=== PATIENT | female | born 1975 | race Caucasian/White ===

== ENCOUNTER 2016-09-17 10:30 | Emergency (ER) | payer SELFPAY ==
--- NOTE | 2016-09-17 11:35 | ED NURSING NOTES ---
Clinical Report - Nurses [facility] [address] [place] [address] 09/17/2016 10:32 [id number] Triage time 10:37 Sep 17 2016. Chief Complaint: Location of symptoms- left shoulder. 10:38 09/17/16. 10:39 09/17/16. Alert. ( Pt with history of RA, pt states she is having left shoulder pain because of this. Pt has been unable to get a PCP as she recently moved here and has not had time to do so.). SEPSIS SCREEN: Sepsis Screen. Negative (no infection suspected/documented). NATHALY COMA SCORE: Nathaly Coma Scale: 15- eyes open spontaneously (4); best verbal response- oriented x 4 (5); best motor response- obeys commands (6). --10:43 Darryl Potter R.N. 10:37 09/17/16. BP: 124/68. HR: 86. RR: 17. O2 saturation: 98% on room air. Temp: 97.8 F (oral). Pain level now: 10/29. --10:43 Darryl Potter R.N. Weight: 99.7 kg stated. Height/Length: 63 inches Per Patient. BMI: 38.9. --10:38 Darryl Potter R.N. Medications Plaquenil Oral. --10:40 Darryl Potter R.N. MetFORMIN HCl Oral. --10:40 Darryl Potter R.N. Allergies Keflex. --10:40 Darryl Potter R.N. PCN. --10:40 Darryl Potter R.N. History Arrived by private vehicle. Historian: patient. Unaccompanied. Primary physician (PCP is in [place], Pt recently moved here). 10:39 09/17/16. No injury occurred. 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 (and heat). PAST MEDICAL HX: Tetanus status: up-to-date. Immunizations: up-to-date. SOCIAL HX: Current every day light tobacco smoker (cigarette)- less than 1/2 a pack per day. No alcohol use or drug use. No infectious disease exposure. ABUSE ASSESSMENT: No report of abuse. FALL RISK ASSESSMENT: Fall risk assessment completed. No fall risk identified. NUTRITIONAL RISK ASSESSMENT: The nutritional risk assessment revealed no deficiencies. FUNCTIONAL ASSESSMENT: Functional assessment: no impairments noted. LEARNING NEEDS ASSESSMENT: The learning needs assessment revealed no barriers. SKIN INTEGRITY ASSESSMENT: Skin integrity risk assessment completed. No skin integrity risk identified. --10:43 Darryl Potter R.N. PAST MEDICAL HX: The patient has had a hysterectomy. --10:44 Darryl Potter R.N. PROBLEMS: Insulin Resistance. Rheumatoid Arthritis. --10:40 Darryl Potter R.N. ADDITIONAL SURGERIES: . Gallbladder Surgery. Hernia Repair. Hysterectomy. --10:41 Darryl Potter R.N. Assessment 10:39 09/17/16. --10:43 Darryl Potter R.N. Interventions 10:38 09/17/16. 10:39 09/17/16. ID and allergy band on patient. To treatment room. --10:43 Darryl Potter R.N. PHYSICAL ASSESSMENT 10:42 09/17/16. GENERAL / NEURO / PSYCH: Oriented X 4. Alert. Appears in no acute distress. EXTREMITIES: Neuro-vascular status intact to the extremity. No upper extremity edema. Skin is non-tender on the extremities. Left shoulder: tenderness. SKIN: Skin is warm and dry. --10:42 Darryl Potter R.N. NURSING PROGRESS NOTES 10:42 09/17/16. Two patient identifiers checked. Call light placed in reach. Side rails up x 2. Bed placed in lowest position. Brakes of bed on. Patient ready for evaluation- chart flagged and notification provided. --10:42 Darryl Potter R.N. DISPOSITION / DISCHARGE 11:37 09/17/16. The patient left the Emergency Department without being seen by a physician and completion of treatment. The patient appears to be alert, oriented x4, coherent and in no acute distress. The patient notified the ED staff prior to leaving the department and stated is leaving the ED due to personal reasons and the long waiting time (Hast to take to work). Notified the ED physician and charge nurse of patient departure. Prior to leaving the ED, she was advised to stay for completion of treatment and return if needed. She was informed of the risks of leaving and verbalized understanding of these risks. Patient signed form prior to leaving. She left the Emergency Department ambulatory and via private vehicle. FALL RISK ASSESSMENT: Fall risk assessment completed. No fall risk identified. --11:37 Darryl Potter R.N. 11:36 09/17/16. BP not taken due to patient not present. HR not taken due to patient not present. RR not taken due to patient not present. O2 saturation not taken due to patient not present. Temp not taken due to patient not present. --11:37 Darryl Potter R.N. 11:37 09/17/16. Departure time: 11:Sep 17 2016. --11:37 Darryl Potter R.N. 11:38 09/17/16. ( Pt left before being seen by ERMD. Pt stated that she has to take to work and cannot stay. Pt signed AMA paperwork.). --11:38 Darryl Potter R.N. Locked/Released at 09/17/2016 11:38 by Darryl Potter R.N.
--- NOTE | 2016-09-17 11:35 | ED NURSING NOTES ---
Clinical Report - Nurses [facility] [address] [place] [address] 09/17/2016 10:32 [id number] Triage time 10:37 Sep 17 2016. Chief Complaint: Location of symptoms- left shoulder. 10:38 09/17/16. 10:39 09/17/16. Alert. ( Pt with history of RA, pt states she is having left shoulder pain because of this. Pt has been unable to get a PCP as she recently moved here and has not had time to do so.). SEPSIS SCREEN: Sepsis Screen. Negative (no infection suspected/documented). NATHALY COMA SCORE: Nathaly Coma Scale: 15- eyes open spontaneously (4); best verbal response- oriented x 4 (5); best motor response- obeys commands (6). --10:43 Darryl Potter R.N. 10:37 09/17/16. BP: 124/68. HR: 86. RR: 17. O2 saturation: 98% on room air. Temp: 97.8 F (oral). Pain level now: 10/29. --10:43 Darryl Potter R.N. Weight: 99.7 kg stated. Height/Length: 63 inches Per Patient. BMI: 38.9. --10:38 Darryl Potter R.N. Medications Plaquenil Oral. --10:40 Darryl Potter R.N. MetFORMIN HCl Oral. --10:40 Darryl Potter R.N. Allergies Keflex. --10:40 Darryl Potter R.N. PCN. --10:40 Darryl Potter R.N. History Arrived by private vehicle. Historian: patient. Unaccompanied. Primary physician (PCP is in [place], Pt recently moved here). 10:39 09/17/16. No injury occurred. Treatment MASS SPEC: Took ibuprofen. (and heat). PAST MEDICAL HX: Tetanus status: up-to-date. Immunizations: up-to-date. SOCIAL HX: Current every day light tobacco smoker (cigarette)- less than 1/2 a pack per day. No alcohol use or drug use. No infectious disease exposure. ABUSE ASSESSMENT: No report of abuse. FALL RISK ASSESSMENT: Fall risk assessment completed. No fall risk identified. NUTRITIONAL RISK ASSESSMENT: The nutritional risk assessment revealed no deficiencies. FUNCTIONAL ASSESSMENT: Functional assessment: no impairments noted. LEARNING NEEDS ASSESSMENT: The learning needs assessment revealed no barriers. SKIN INTEGRITY ASSESSMENT: Skin integrity risk assessment completed. No skin integrity risk identified. --10:43 Darryl Potter R.N. PAST MEDICAL HX: The patient has had a hysterectomy. --10:44 Darryl Potter R.N. PROBLEMS: Insulin Resistance. Rheumatoid Arthritis. --10:40 Darryl Potter R.N. ADDITIONAL SURGERIES: . Gallbladder Surgery. Hernia Repair. Hysterectomy. --10:41 Darryl Potter R.N. Assessment 10:39 09/17/16. --10:43 Darryl Potter R.N. Interventions 10:38 09/17/16. 10:39 09/17/16. ID and allergy band on patient. To treatment room. --10:43 Darryl Potter R.N. PHYSICAL ASSESSMENT 10:42 09/17/16. GENERAL / NEURO / PSYCH: Oriented X 4. Alert. Appears in no acute distress. EXTREMITIES: Neuro-vascular status intact to the extremity. No upper extremity edema. Skin is non-tender on the extremities. Left shoulder: tenderness. SKIN: Skin is warm and dry. --10:42 Darryl Potter R.N. NURSING PROGRESS NOTES 10:42 09/17/16. Two patient identifiers checked. Call light placed in reach. Side rails up x 2. Bed placed in lowest position. Brakes of bed on. Patient ready for evaluation- chart flagged and notification provided. --10:42 Darryl Potter R.N. DISPOSITION / DISCHARGE 11:37 09/17/16. The patient left the Emergency Department without being seen by a physician and completion of treatment. The patient appears to be alert, oriented x4, coherent and in no acute distress. The patient notified the ED staff prior to leaving the department and stated is leaving the ED due to personal reasons and the long waiting time (Hast to take to work). Notified the ED physician and charge nurse of patient departure. Prior to leaving the ED, she was advised to stay for completion of treatment and return if needed. She was informed of the risks of leaving and verbalized understanding of these risks. Patient signed form prior to leaving. She left the Emergency Department ambulatory and via private vehicle. FALL RISK ASSESSMENT: Fall risk assessment completed. No fall risk identified. --11:37 Darryl Potter R.N. 11:36 09/17/16. BP not taken due to patient not present. HR not taken due to patient not present. RR not taken due to patient not present. O2 saturation not taken due to patient not present. Temp not taken due to patient not present. --11:37 Darryl Potter R.N. 11:37 09/17/16. Departure time: 11:Sep 17 2016. --11:37 Darryl Potter R.N. 11:38 09/17/16. ( Pt left before being seen by ERMD. Pt stated that she has to take to work and cannot stay. Pt signed AMA paperwork.). --11:38 Darryl Potter R.N. Locked/Released at 09/17/2016 11:38 by Darryl Potter R.N.
--- NOTE | 2016-09-17 11:38 | ED MED RECONCILIATION SUMMARY ---
Patient: REKHA RAMIRES Medication Reconciliation Report [facility] VisitID: [id number] [address] [place] [address] 41y, F Registration Date/Time: 09/17/2016 Weight: 99.7 kg Height/Length: 63 in. BMI: 38.9 ALLERGIES: Keflex, PCN The patient's Home Medications are listed below: THE FOLLOWING MEDICATIONS NEED TO BE RECONCILED: MetFORMIN HCl Oral Plaquenil Oral The source(s) of the original Home Medication information: Not obtained. The following Medications were given to the patient in the Emergency Department: None. The following Medications were prescribed to the patient: None.
--- NOTE | 2016-09-17 11:38 | ED MAR SUMMARY ---
..... Medication Administration Record [facility] [address] [place], [place] [id number] Patient: REKHA RAMIRES Visit ID: [id number] 41y, F Weight: 99.7 kg Height/Length: 63 in BMI: 38.9 ALLERGIES: PCN, Keflex
--- NOTE | 2016-09-17 11:38 | ED MED RECONCILIATION SUMMARY ---
Patient: REKHA RAMIRES Medication Reconciliation Report [facility] VisitID: [id number] [address] [place] [address] 41y, F Registration Date/Time: 09/17/2016 Weight: 99.7 kg Height/Length: 63 in. BMI: 38.9 ALLERGIES: Keflex, PCN The patient's Home Medications are listed below: THE FOLLOWING MEDICATIONS NEED TO BE RECONCILED: MetFORMIN HCl Oral Plaquenil Oral The source(s) of the original Home Medication information: Not obtained. The following Medications were given to the patient in the Emergency Department: None. The following Medications were prescribed to the patient: None.
--- NOTE | 2016-09-17 11:38 | ED MAR SUMMARY ---
..... Medication Administration Record [facility] [address] [place] [id number] Patient: REKHA RAMIRES Visit ID: [id number] 41y, F Weight: 99.7 kg Height/Length: 63 in BMI: 38.9 ALLERGIES: PCN, Keflex
== END 2016-09-17 11:37 | disposition home or self-care (01) ==
LOC: ED SRH 10:30
DX: Z53.21 Procedure and treatment not carried out due to patient leaving prior to being seen by health care provider (principal)